=== PATIENT | female | born 1995 | race Caucasian/White ===

== ENCOUNTER 2021-11-22 07:49 | Outpatient (CLI) | payer OTHER, MEDICAID, SELFPAY ==
[2021-11-22 08:50] LABS: Basophils Percent Auto 0.3 % (0.2-1.2); Eosinophils Absolute Auto 0.1 K/mm3 (0-0.3); Eosinophils Percent Auto 0.9 % (0-4.4); Hematocrit 36.2 % (37.0-47.0); Hemoglobin 12.6 g/dL (12.0-15.0); Immature Granulocyte Absolute 0.02 K/mm3 (0.00-0.031); Immature Granulocyte Percent A 0.3 % (0-0.5); Lymphocytes Absolute Auto 1.79 K/mm3 (0.9-3.2); Lymphocytes Percent Auto 25.9 % (18.3-44.2); Mean Corpuscular HGB Conc 34.8 g/dl (32-36); Mean Corpuscular Hemoglobin 30.7 pg (26-34); Mean Corpuscular Volume 88.3 fl (80-100); Mean Platelet Volume 10.9 fl (7.4-10.4); Monocytes Absolute Auto 0.6 K/mm3 (0.1-0.6); Monocytes Percent Auto 7.9 % (2.6-8.5); Neutrophils Absolute Auto 4.5 K/mm3 (1.3-6.7); Neutrophils Percent Auto 64.7 % (45.5-73.1); Platelet Count Result 244 k/mm3 (150-375); Red Cell Distribution Width 11.7 % (11.5-14.5); White Blood Count 6.9 K/mm3 (4.5-10.0)
[2021-11-22 09:35] LABS: HIV 1/2 Ab P24 Ag Result Negative (Negative)
[2021-11-22 10:07] LABS: Hepatitis B Surface Antigen Negative (Negative); Rubella IgG Antibody 28.2 IU/ML
[2021-11-25 07:06] LABS: Rapid Plasma Reagin Non-Reactive (NonReactive)
== END 2021-11-22 07:50 | disposition home or self-care (01) ==
PROVIDERS: PCP Nurse Practitioner Family; Visit Provider Obstetrics & Gynecology
DX: N94.89 Other specified conditions associated with female genital organs and menstrual cycle (principal)
CPT/HCPCS: 36415; 84702; 85025; 86592; 86644; 86703; 86747; 86762; 86787; 86850; 86900; 86901; 87086; 87088; 87340; G0432

== ENCOUNTER 2022-03-13 12:36 | Outpatient (CLI) | payer OTHER, SELFPAY ==
[2022-03-13 14:26] LABS: Glucose 1 Hour PP 50gm Dose 138 mg/dL
== END 2022-03-13 12:37 | disposition home or self-care (01) ==
LOC: ANHLAB 12:38
PROVIDERS: PCP Nurse Practitioner Family; Visit Provider Student in an Organized Health Care Education/Training Program
DX: Z34.90 Encounter for supervision of normal pregnancy, unspecified, unspecified trimester (principal); Z3A.00 Weeks of gestation of pregnancy not specified
CPT/HCPCS: 36415; 82947

== ENCOUNTER 2022-04-22 09:59 | Observation (INO) | payer OTHER, SELFPAY ==
[2022-04-22] VITALS (48 sets, daily range): BP systolic 137–177; BP diastolic 43–117; PULSE 71–106; RESP 16–18; TEMP 36.2; O2SAT 95–100; BMI 34.4
--- NOTE | 2022-04-22 11:00 | OBADM ---
Pt initially here for NST for SGA when elevated BP's were noted. This patient, Romina Snyder, admitted to the OB room 116 for observation for severe hypertension in . Patient/family oriented to hospital policies and general routines including ID bracelet, bed and alarms, visiting hours, pain management, procedures, bathroom and other care routines, personal items, smoking policy, room service/diet, and visiting hours. Patient/Family are encouraged to report perceived risks to care and to ask questions if they do not understand what they are told or what they should do.
[2022-04-22] MEDS: LACTATED RINGERS 1,000 ML 75 ML IV CONT (11:17)
[2022-04-22] MEDS: LABETALOL HCL INJ 100 MG/20 ML VIAL 20 MG IV PUSH (11:20)
[2022-04-22] MEDS: MAGNESIUM SULF 4 GM/WATER100ML 4 GM/100 ML BAG IVPB (11:29)
[2022-04-22] MEDS: BETAMETHASONE SOD PHOS/ACETATE 30 MG/5 ML VIAL 12 MG IM (11:35)
[2022-04-22] MEDS: LABETALOL HCL INJ 100 MG/20 ML VIAL 40 MG IV PUSH (11:41)
[2022-04-22] MEDS: MAGNESIUM SULF 20GM/WATER500ML 500 ML 50 MG IV CONT (12:00)
--- NOTE | 2022-04-22 12:01 | PM.IMHP ---
H&P: HPI History of Present Illness Date/Time: 04/22/22 12:01 26-year-old primigravid patient at 34 weeks presents today for nonstress test due to IUGR noted on growth scan yesterday, found to have elevated blood pressures of 170/1 100-110. She is entirely asymptomatic as far as headaches blurred vision shortness of breath or chest or abdominal pain. care has been consistent and without any abnormalities to this point. Highest blood pressure in her visits old 130/80. Chief Complaint: Presents for NST due to IUGR Review of Systems Review of Systems: All systems reviewed & are unremarkable except as noted in HPI and below PMFSH Past Medical History Medical History Acute anxiety Blood glucose abnormal Surgical History Surgical History History of ear surgery Family History Family History Other Diabetes mellitus Hypertension Social History Social History Smoking status: Never smoker Alcohol intake: never Substance use: never Substance use type: does not use Living arrangements: with family Occupation/Education: unemployed Gender identity (if verbalized by the patient): Female Sexual Orientation (if Verbalized by the Patient): Straight or Heterosexual Meds Home Medications and Allergies Home Medications Medication Instructions Recorded Confirmed Type citalopram 20 mg tablet 20 mg PO DAILY 11/06/21 04/22/22 History prenat.vits,sheela,glc-xfly-proxf 1 tablet PO DAILY 01/01/22 04/22/22 History Allergies Allergy/AdvReac Type Severity Reaction Status Date / Time No Known Allergies Allergy Verified 04/09/22 13:26 Vital Signs Vital Signs - 24 hr 04/22/22 11:20 04/22/22 11:41 04/22/22 11:10 Pulse Rate 83 95 79 Blood Pressure 172/114 H Pulse Oximetry 04/22/22 11:15 04/22/22 11:18 04/22/22 11:20 Pulse Rate 80 84 Blood Pressure 175/117 H 172/107 H Pulse Oximetry 99 04/22/22 11:23 04/22/22 11:26 04/22/22 11:28 Pulse Rate 95 Blood Pressure 162/98 H Pulse Oximetry 98 98 04/22/22 11:30 04/22/22 11:33 04/22/22 11:36 Pulse Rate 95 98 Blood Pressure 177/116 H 165/43 H Pulse Oximetry 99 04/22/22 11:38 04/22/22 11:40 04/22/22 11:41 Pulse Rate 88 89 Blood Pressure 171/106 H 162/108 H Pulse Oximetry 99 04/22/22 11:43 04/22/22 11:48 04/22/22 11:50 Pulse Rate 106 H 97 Blood Pressure 166/104 H 166/111 H Pulse Oximetry 98 98 04/22/22 11:53 04/22/22 11:55 04/22/22 11:58 Pulse Rate 94 Blood Pressure 162/103 H Pulse Oximetry 99 99 04/22/22 12:00 Pulse Rate 95 Blood Pressure 159/101 H Pulse Oximetry Exam Const: General: cooperative, healthy appearing and comfortable Resp: Effort & Inspection: normal respiratory effort Auscultation: clear to auscultation bilaterally Cardio: Rate: regular rate Rhythm: regular rhythm GI: Inspection: normal to inspection GI Palp: No abdominal tenderness Auscultation: normal bowel sounds : Bimanual exam- vagina & uterus: enlarged ( fundal height 31cm) Assessment and Plan Assessment and plan (1) 34 weeks gestation of : Code(s): Z3A.34 - 34 weeks gestation of Status: Acute (2) Pre-eclampsia in third trimester: Code(s): O14.93 - Unspecified pre-eclampsia, third trimester Status: Acute Assessment and Plan: severe features by blood pressure /otherwise asymptomatic (3) IUGR (intrauterine growth restriction): Status: Acute Plan 1. Labetalol antihypertensive per protocol 2. Magnesium sulfate 4g load followed by 2grams/hour 3. Betamethasone x1 4. Initiate ampicillin for GBS prophylaxis 5. contact [facility] for transfer and likely delivery
[2022-04-22 12:04] LABS: Appearance Urine Cloudy (Clear); Bacteria Urine None Seen /hpf; Bilirubin Urine Negative (Negative); Blood Urine Negative (Negative); Color Urine Yellow (Yellow); Glucose Urine UA Negative (Negative); Ketones Urine Negative (Negative); Leukocyte Esterase Ur Negative LEU/UL (Negative); Nitrate Urine Negative (Negative); Non Pathogenic Casts 0-2; Protein Urine 2+ mg/dL (Negative); RBC Urine 0-2 /hpf (0-2); Specific Grav Ur 1.008 (1.001-1.035); Squamous Epithelial Cell Urine Few /hpf (Few); Urobilinogen Urine 0.2 mg/dL (<2.0); WBC Urine 0-5 /hpf
[2022-04-22] MEDS: ONDANSETRON INJ 4 MG/2 ML VIAL IV PUSH (12:06)
[2022-04-22 12:08] LABS: Creatinine Urine 55.5 mg/dL; Total Protein Urine Random 84 mg/dL; Ur Ttl Prot Creatinine Ratio 1.51 mg/mg (0-0.20)
[2022-04-22] MEDS: AMPICILLIN 2 GM/NS 100 ML 2 GM/100 ML BAG IVPB (12:09)
[2022-04-22 12:14] LABS: Alanine Aminotransferase 14 U/L (6-35); Albumin Level 3.6 g/dL (3.5-5.1); Alkaline Phosphatase 153 U/L (38-126); Anion Gap 3 mmol/L (8-16); Aspartate Amino Transferase 25 U/L (14-36); Bilirubin,Total 0.4 mg/dL (0.2-1.3); Blood Urea Nitrogen 3 mg/dL (7-17); Calcium 8.9 mg/dL (8.4-10.2); Carbon Dioxide 23 mmol/L (22-30); Chloride 106 mmol/L (98-107); Estimated Glomerular Filt Rate > 60; Glucose 68 mg/dL (65-110); Potassium 3.7 mmol/L (3.4-5.0); Sodium 132 mmol/L (137-145); Uric Acid 5.8 mg/dL (2.5-7.5)
[2022-04-22 12:15] LABS: Basophils Percent Auto 0.4 % (0.2-1.2); Eosinophils Absolute Auto 0.2 K/mm3 (0-0.3); Eosinophils Percent Auto 2.7 % (0-4.4); Hematocrit 34.5 % (37.0-47.0); Hemoglobin 12.2 g/dL (12.0-15.0); Immature Granulocyte Absolute 0.04 K/mm3 (0.00-0.031); Immature Granulocyte Percent A 0.5 % (0-0.5); Lymphocytes Absolute Auto 2.12 K/mm3 (0.9-3.2); Lymphocytes Percent Auto 28.9 % (18.3-44.2); Mean Corpuscular HGB Conc 35.4 g/dl (32-36); Mean Corpuscular Hemoglobin 30.3 pg (26-34); Mean Corpuscular Volume 85.8 fl (80-100); Mean Platelet Volume 12.6 fl (7.4-10.4); Monocytes Absolute Auto 0.7 K/mm3 (0.1-0.6); Monocytes Percent Auto 9.3 % (2.6-8.5); Neutrophils Absolute Auto 4.3 K/mm3 (1.3-6.7); Neutrophils Percent Auto 58.2 % (45.5-73.1); Platelet Count Result 182 k/mm3 (150-375); Red Blood Count 4.02 M/mm3 (4.2-5.4); Red Cell Distribution Width 12.5 % (11.5-14.5); White Blood Count 7.3 K/mm3 (4.5-10.0)
[2022-04-22 12:18] LABS: Add Urine Microscopic? YES
[2022-04-22] MEDS: LABETALOL HCL INJ 100 MG/20 ML VIAL 80 MG IV PUSH (12:20)
--- NOTE | 2022-04-23 15:04 | PM.OBTRLD ---
OB - Triage/Final Diagnosis Visit Information Reason for evaluation: other ( see history and physical.) Comments/Additional reasons for admission: I have assessed the risk for this patient, Romina Snyder, and determined that she would benefit from observation care. Final diagnosis: 1. Thirty-four week intrauterine 2. Preeclampsia, severe by blood pressure values 3. IUGR Evaluation Laboratory results: Laboratory Tests 04/22/22 04/22/22 04/22/22 11:50 11:50 11:50 WBC 7.3 RBC 4.02 L Hgb 12.2 Hct 34.5 L MCV 85.8 MCH 30.3 MCHC 35.4 RDW 12.5 Plt Count 182 MPV 12.6 H Immature Gran % (Auto) 0.5 Neut % (Auto) 58.2 Lymph % (Auto) 28.9 Ford % (Auto) 9.3 H Eos % (Auto) 2.7 Baso % (Auto) 0.4 Lymph # (Auto) 2.12 Ford # (Auto) 0.7 H Eos # (Auto) 0.2 Baso # (Auto) 0.0 Abs Immat Gran (auto) 0.04 H Absolute Neuts (auto) 4.3 Absolute Nucleated RBC 0.0 Nucleated RBC % 0.0 Sodium 132 L Potassium 3.7 Chloride 106 Carbon Dioxide 23 Anion Gap 3 L BUN 3 L Creatinine 0.50 L Estim Creat Clear Calc Not Reportable Estimated GFR > 60 Glucose 68 Uric Acid 5.8 Calcium 8.9 Total Bilirubin 0.4 AST 25 ALT 14 Alkaline Phosphatase 153 H Total Protein 6.0 L Albumin 3.6 Urine Color Yellow Urine Appearance Cloudy H Urine pH 6.0 Ur Specific Cromwell 1.008 Urine Protein 2+ H Urine Glucose (UA) Negative Urine Ketones Negative Ur Blood (Man) Negative Urine Nitrate Negative Urine Bilirubin Negative Urine Urobilinogen 0.2 Leukocyte Esterase Rfl Negative Urine RBC 0-2 Urine WBC 0-5 Ur Squamous Epith Cells Few Urine Bacteria None seen Urine Casts 0-2 U Random Total Protein Urine Creatinine Protein/Creat Ratio 2 04/22/22 11:50 WBC RBC Hgb Hct MCV MCH MCHC RDW Plt Count MPV Immature Gran % (Auto) Neut % (Auto) Lymph % (Auto) Ford % (Auto) Eos % (Auto) Baso % (Auto) Lymph # (Auto) Ford # (Auto) Eos # (Auto) Baso # (Auto) Abs Immat Gran (auto) Absolute Neuts (auto) Absolute Nucleated RBC Nucleated RBC % Sodium Potassium Chloride Carbon Dioxide Anion Gap BUN Creatinine Estim Creat Clear Calc Estimated GFR Glucose Uric Acid Calcium Total Bilirubin AST ALT Alkaline Phosphatase Total Protein Albumin Urine Color Urine Appearance Urine pH Ur Specific Cromwell Urine Protein Urine Glucose (UA) Urine Ketones Ur Blood (Man) Urine Nitrate Urine Bilirubin Urine Urobilinogen Leukocyte Esterase Rfl Urine RBC Urine WBC Ur Squamous Epith Cells Urine Bacteria Urine Casts U Random Total Protein 84 Urine Creatinine 55.5 Protein/Creat Ratio 2 1.51 H
== END 2022-04-22 13:08 ==
LOC: ANHOBPP 10:50
PROVIDERS: Admitting Provider Obstetrics & Gynecology; PCP Nurse Practitioner Family; Visit Provider Obstetrics & Gynecology
DX: O14.93 Unspecified pre-eclampsia, third trimester (principal); O36.5930 Maternal care for other known or suspected poor fetal growth, third trimester, not applicable or unspecified; Z3A.34 34 weeks gestation of pregnancy
CPT/HCPCS: 36415; 80053; 81001; 82570; 84156; 84550; 85025; 96365; 96366; 96367; 96372; 96375; 96376; G0378; G0379; J0290; J0702; J2405; J3475; J7120

== ENCOUNTER 2024-10-27 12:57 | Outpatient (CLI) | payer BC, SELFPAY ==
--- OUTSIDE RECORDS SUMMARY | 2024-10-27 13:14 | XMS_ITS | Clinical Summary ---
Author Organization [facility] Address [address] [place] [address] Care Team Providers Care Injection Molding Technician Name Role Phone Unavailable Primary Care Provider Unavailabl e Source Comments [facility],non-owned Affiliates and Associated Physician Practices is amultiple site organization consisting of ambulatory clinics and hospital sitesin [place], [place], [place] and [place]. This disclosure is being madepursuant to the Care Everywhere program and may not contain all information available regarding this patient. Last updated 17.[facility] Allergies Active Allergy Reactions Criticality Noted Date Comments Penicillins Unknown 07/12/2024 Penicillin G Benzathine Unknown 05/24/2022 Medications * This document contains information received from the source organization and may not represent a complete record from that organization. * Be aware that medications may not be up to date on this document. Alwaysverify current medications with the patient. escitalopram (Lexapro) 20 MG tablet Take 1 (one) tablet by mouth once daily 30 tablet Active Additional Information Patient taking differently:20 mg Oral DAILY,Indications: depression and anxiety, Reason: Other, Informant: Patient, Reported on 09/07/2024 ARIPiprazole (Abilify) 10 MG tablet Take 1 (one) tablet by mouth once daily 30 tablet Active Additional Information Patient not taking.Reason: Other (insurance), Informant: Patient, Reported on 09/07/2024 Vit-DSS-Fe Fum-FA ( vitamin with iron) tabletIndicatio ns: Take 1 (one) tablet by mouth once daily Reasons: Active aspirin (Aspirin) 81 MG chew tabletIndicatio ns:Preeclampsia Take 2 (two) tablets by mouth once daily (chew and swallow) Reasons: Increased Blood Pressure and Edema During Active Active Problems Problem Noted Date Diagnosed Date BMI 36.0-36.9,adult 07/13/2024 Obesity affecting in second trimester 07/11/2024 History of pre-eclampsia in prior , currently in second trimester 07/11/2024 History of gestational diabe estefania mellitus (GDM) in prior , currently in second trimester 07/11/2024 History of delivery, currently in second trimester 07/11/2024 Overview (07/11/2024): Pre-Eclampsia Estimated Date of Delivery Comme nts Yes 12/29/2024 Based on Ultraso und Resolved Problems Problem Noted Date Diagnosed Date Resolved Date History of 07/11/2024 025 Pre-eclampsia in third trimester 04/22/2022 07/13/2024 Encounters Date Type Department Care Team Description 10/03/2024 1:45 PM CDT - 10/03/2024 11:59 PM CDT Hospital Encounter [facility] [address] [place] [address] 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 DO 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 Discharge Disposition: Home or Self Care 09/07/2024 8:04 AM CDT - 09/07/2024 11:59 PM CDT Hospital Encounter [facility] [address] [place] [id number] Lucinda Sebastian MD Discharge Disposition: Home or Self Care 09/07/2024 Results Follow-Up [facility] [address] [place] [id number] Lcuinda Sebastian MD 08/10/2024 8:15 AM CDT - 08/10/2024 11:59 PM CDT Hospital Encounter [facility] [address] [place] [id number] Claudy Moore MD Discharge Disposition: Home or Self Care from Last 3 Months Immunizations Immunization Administration Dates Next Due MMR 04/25/2022() TDAP (7yrs+) 04/25/2022() Family History Medical History Relation Name Comments Hypertension Father Hypertension Paternal Grandfather Relation Name Status Comments Father Alive Maternal Grandmother Mother Alive Paternal Grandfather Paternal Grandmother Alive Social History Tobacco Use Types Packs/Day Years Used Date Smoking Tobacco: Never Smokeless Tobacco: Never Tobacco Cessation:Counseling Given: No Alcohol Use Standard Drinks/Week Comments Not Currently 0 (1 standard drink = 0.6 oz pure alcohol) 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 Overall Financial Resource Strain (CARDIA) Answe r Date Recorded How hard is it for you to pa y for the very basics like food, housing, medical care, and heating? Somewhat hard 04/22/2022 [facility] [place] Occupat ional Health - Occupational Stress Questionnaire Answer Date Recorded Do you feel stress - tense, restless, nervous, or anxious, or unable to sleep at night because your mind is troubled all the time - these days? Not at all 04/22/2022 Hunger Vital Sign Answer Date Recorded Within the past 12 months, y ou worried that your food would run out before you got the money to buy more. Never true 04/22/19 23 Within the past 12 months, t he food you bought just didn't last and you didn't have money to get more. Never true 04/22/2022 PRAPARE - Transportation Answer Date Re corded In the past 12 months, has l ack of transportation kept you from medical appointments or from getting medications? No 03/27 In the past 12 months, has l ack of transportation kept you from meetings, work, or from getting things needed for daily living? No 04/22/2022 Housing Stability Vital Sign Answer Josh e Recorded In the last 12 months, was t here a time when you were not able to pay the mortgage or rent on time? No 04/22/2022 In the last 12 months, how many places have you lived? 1 04/22/2022 In the last 12 months, was t here a time when you did not have a steady place to sleep or slept in a usp (including now)? No 04/22/2022 Estimated Date of Delivery Comme nts Yes 12/29/2024 Based on Ultraso und Sex and Gender Information Value Date Recorded Sex Assigned at Not on file Legal Sex Female 1:43 PM [employer] Gender Identity Not on file Sexual Orientation Not on file Last Filed Vital Signs Vital Sign Reading Time Taken Comments Blood Pressure 121/76 09/07/2024 8:48 AM CDT Pulse 79 09/07/2024 8:48 AM CDT Temperature 36.7 C (98.1 F) 05/09/2023 3:25 PM CDT Respiratory Rate 16 05/09/2023 3:25 PM CDT Oxygen Saturation 99% 04/26/2022 12:00 PM [employer] Inhaled Oxygen Concentration - - Weight 96.6 kg (213 lb) 09/07/2024 8:48 AM CDT Height 157.5 cm (5' 2) 07/13/2024 2:17 PM CDT Body Mass Index 38.96 07/13/2024 2:17 PM CDT Plan of Treatment Upcoming Encounters Date Type Department Care Team (Late st Contact Info) Description 11/08/2024 9:45 AM CDT Appointment [facility] [address] [place], [place] [id number] Health Maintenance Due Date Last Done Comments HEPATITIS C SCREENING 08/21/2015 DTAP/TDAP/TD VACCINES (1 - Tdap) 2016 HEPATITIS B VACCINE (1 of 3 - 19+ 3-dose series) 2016 PAP SMEAR 2018 COVID-19 VACCINE (3 - 2023-2 5 season) 2023 04/15/2021, 03/18/2021 DEPRESSION SCREENING 02/24/2024 HPV VACCINE (1 - 3-dose SCDM series) 2024 OB-ONE HOUR GLUCOSE 09/22/2024 OB-TDAP CURRENT 09/29/20242022, 09/01/2007 INFLUENZA VACCINE (#1) 2024 11/18/2022 Respiratory Syncytial Virus (RSV) Vaccine Pt: or over 60 yrs (1 - Risk 1-dose series) 11/03/2024 OB-GROUP B STREP SCREEN 11/24/2024 04/22/2022 ZOSTER VACCINE (1 of 2) 08/26/2047 HIV SCREENING Completed 06/07/2024 HIB VACCINE Aged Out No longer eligi ble based on patient's age to complete this topic MENINGOCOCCAL (Group B) VACCINE SHARED DECISION-MAKING Aged Out No longer eligible based on patient's age to complete this topic MENINGOCOCCAL GROUPS A/C/Y/W VACCINE Aged Out No longer eligible b ased on patient's age to complete this topic PNEUMOCOCCAL VACCINE Aged Out No long er eligible based on patient's age to complete this topic Procedures Procedure Name Priority Date/Time Associated Diagnosis Comments SONOGRAM - COMPLETE Routine 10/03/2024 2 :06 PM CDT Encounter for anatomic survey (HCC) History of delivery, currently in second trimester (HCC) History of History of gestational diabetes mellitus (GDM) in prior , currently in second trimester (HCC) History of pre-eclampsia in prior , currently in second trimester (HCC) Obesity affecting in second trimester, unspecified obesity type ([facility]) SONOGRAM - COMPLETE Routine 09/07/2024 8 :13 AM CDT History of delivery, currently in second trimester (HCC) History of History of gestational diabetes mellitus (GDM) in prior , currently in second trimester (HCC) History of pre-eclampsia in prior , currently in second trimester (HCC) Obesity affecting in second trimester, unspecified obesity type (HCC) SONOGRAM - COMPLETE Routine 08/10/2024 8 :19 AM CDT Encounter for anatomic survey (HCC) History of delivery, currently in second trimester (HCC) History of History of gestational diabetes mellitus (GDM) in prior , currently in second trimester (HCC) History of pre-eclampsia in prior , currently in second trimester (HCC) Obesity affecting in second trimester, unspecified obesity type (HCC) CULTURE STREP B Routine 04/22/2022 4:17 PM [employer] from Last 3 Months or Most Recently Relevant to Health Maintenance Results * SONOGRAM - COMPLETE (10/03/2024 2:06 PM CDT) Only the most recent of3 resultswithin the time period is included. Linked Results Indication ======== Screening Follow-Up Size/date discrepancy Maternal obesity complicating , class 1 (BMI 30.0 - 34.9) Supervision of with other poor obstetric history History ====== OB History 2. Para 1 [id number] 1. live 2022. Gest. age 34 w + 2 d. Weight 1,910 g. Sex of child: female. Details: Preeclampsia with severe features Lab Tests Test Date Result NIPT Low risk, Female Maternal Assessment Physical Exam Height 157 cm, 5 ft 2 in. Weight 98 kg, 217 lb. Initial weight 86 kg, 189 lb. BMI 39.69 kg/m . Initial BMI 34.57 kg/m . Weight gain 13 kg, 28 lb Method ====== Transabdominal ultrasound. View: Sufficient ========= Frazier . Number of fetuses: 1 Dating ====== Date Details Gest. age JOCELYN LMP 03/17/2024 28 w + 4 d 12/22/2024 Stated JOCELYN 27 w + 4 d 12/29/2024 Previous U/S 06/07/2024 CRL 38.4 mm 27 w + 4 d 12/29/2024 U/S 10/03/2024 based upon AC, BPD, Femur, HC 27 w + 6 d 12/27/2024 Assigned dating based on ultrasound (CRL), selected on 08/10/2024 27 w + 4 d 12/29/2024 General Evaluation Cardiac activity present. FHR 164 bpm. Presentation: breech Placenta: Placental site: posterior no previa Amniotic fluid: Amount of AF: normal. MVP 7.5 cm. ANA 23.7 cm. Q1 7.5 cm, Q2 7.2 cm, Q3 3.5 cm, Q4 5.6 cm Biometry BPD 67.4 mm 27w 1d 25% Hadlock HC 256.1 mm 27w 6d 28% Hadlock AC 246.8 mm 28w 6d 81% Hadlock Femur 51.7 mm 27w 4d 36% Hadlock Humerus 47.7 mm 28w 0d 59% Fallon HC / AC 1.04 Weight Calculation: EFW 1,198 g 64% Hadlock EFW (lb,oz) 2 lb 10 oz EFW by Hadlock (JTQ-TO-NY-FL) appropriate Growth Overview Exam date GA BPD (mm) HC (mm) AC (mm) FL (mm) HL (mm) EFW (g) 07/13/2024 15w 6d 31.7 49% 118.3 34% 95.4 45% 20.6 57% 138 42% 08/10/2024 19w 6d 45.1 40% 166 18% 142.1 35% 31.3 37% 31.4 76% 302 32% 09/07/2024 23w 6d 56.2 20% 207.9 7% 196 55% 43.1 46% 40.3 60% 653 49% 10/03/2024 27w 4d 67.4 25% 256.1 28% 246.8 81% 51.7 36% 47.7 59% 1198 64% Anatomy The following structures appear normal: Abdomen Stomach. Kidneys. Bladder. sex: female. Impression ========= Here today for interval growth ultrasound due to size/date discrepancy. Single, live, intrauterine at 27w 4d The size is appropriate for the established gestational age. The amniotic fluid volume is normal. Normal appearing posterior placenta. No major malformations were seen within the limits of ultrasound. The anatomical survey was previously complete Comment ======== The biometry is showing good interval growth in the estimated weight is appropriate for the gestational age. Both ultrasound and screening/testing have their limitations in detecting all congenital anomalies and chromosomal abnormalities/inh erited disorders or genetic syndromes. Follow-up ======== To return as clinically warranted by the primary OB provider. Pre term labor and preeclampsia precautions along with kick counts. Thank you for allowing us to partake in your patient's care very Coding ====== Diagnoses O99.212, E66.811: Obesity complicating , class 1 (BMI 30.0 - 34.9) Z36.2: Encounter for other screening follow-up O09.292: Supervision of with other poor reproductive or obstetric history O99.212, E66.811: Obesity complicating , class 1 (BMI 30.0 - 34.9) Procedures 36609: US Preg Uterus Follow Up [facility] Anatomical Region Laterality Modality Other 10/03/2024 2:06 PM CDT Lucinda Sebastian MD [facility] ORDERABLES Edited Result - Final * CULTURE STREP B (04/22/2022 4:17 PM [employer]) Culture Strep B Negative for beta-hemolytic Streptococcus Group B LOUISE 04/25/2022 3:28 PM [employer]PER[employer]OR [employer]PARTMENT [facility] MICROBIOLOGY Microbiology MISCELLANEOUS SAMPLES / Unknown Collection / Unknown 04/22/2022 4:17 PM [employer] 04/22/2022 4:27 PM [employer]PER[employer] Skylar Triplett MD LAB - MICROBIOLOGY ORD ERABLES Final Result [facility] MICROBIOLOGY [address] [place], [place] [address], [facility] [phone] from Last 3 Months or Most Recently Relevant to Health Maintenance Insurance [facility] MEDICAID - [place] Advance Directives * Full Code (Latest Code Status on File) Date Activated Date Inactivated Comments 04/22/2022 2:55 PM 04/26/2022 2:13 PM
--- OUTSIDE RECORDS SUMMARY | 2024-10-27 13:14 | XMS_ITS | Patient Health Record ---
Author Organization [facility] [employer] Address [address] [place] [address] Care Team Providers Care Workers Compensation Coordinator Name Role Phone Jai Glover Unavailable [phone] Reason For Referral No Information Medications Medication SIG (Take, Route, Frequency, Duration) Notes Start Date End Date Status ARIPiprazole 10 MG Tablet Oral 10/07/2021 Active Escitalopram Oxalate 5 MG Tablet Oral 10/07/2021 Active ARIPiprazole 2 MG Tablet Oral 10/07/2021 Active NIFEdipine ER 90 mg Tablet Extended Release 24 Hour Oral 10/07/2021 Act daryn Docusate Sodium 100 MG Capsule Oral 10/07/2021 Active QUEtiapine Fumarate 50 MG Tablet Oral 10/07/2021 Active Escitalopram Oxalate 20 MG Tablet Oral 10/07/2021 Active QUEtiapine Fumarate 25 MG Tablet Oral 10/07/2021 Active ARIPiprazole 5 MG Tablet Oral 10/07/2021 Active Amoxicillin 875 MG Tablet Oral 10/07/2021 Active Immunizations Vaccine Route Administration Date Status Comme nts Moderna Covid-19 Vaccine 1st dose Unknown 03/18/2021 Ad ministered Moderna Covid-19 Vaccine 1st dose Unknown 04/15/2021 Ad ministered Social History Social History Additional Details Category Social Info Options Details Migrated Social History Migrated Social History Alcohol Intake: Occasional 06/07/2021,Tobacco Years: Never smoker 06/07/2021 Plan Of Treatment No Information Medical (General) History Surgical History Surgery Date(Month/Year) Other 07/29/2015
--- OUTSIDE RECORDS SUMMARY | 2024-10-27 13:14 | XMS_ITS | Encounter Summary ---
Author Organization [facility] Address [address] [facility] [place] [address] Care Team Providers Care Polysom Tech Name Role Phone Unavailable Primary Care Provider Unavailabl e Encounter Details Date Type Department Care Team (Late st Contact Info) Description 09/07/2024 Results Follow-Up [facility] Women's Health Maternal & Care [facility] [place] [address] Lucinda Sebastian MD [address] [facility] [address] [place] [address] Social History Tobacco Use Types Packs/Day Years Used Date Smoking Tobacco: Never Smokeless Tobacco: Never Alcohol Use Standard Drinks/Week Comments Not Currently 0 (1 standard drink = 0.6 oz pure alcohol) 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 Overall Financial Resource Strain (CARDIA) Answe r Date Recorded How hard is it for you to pa y for the very basics like food, housing, medical care, and heating? Somewhat hard 04/22/2022 [facility] [place] of Occupat ional Health - Occupational Stress [...] place to sleep or slept in a senior care (including now)? 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 Answer Date of Assessment Author No 04/22/2022 2:45 PM Amanda Padgett RN * Is person blind or have serious difficulty seeing? Answer Date of Assessment Author No 04/22/2022 2:45 PM Amanda Padgett RN * Does person have serious difficulty walking/climbing stairs? Answer Date of Assessment Author No 04/22/2022 2:45 PM Amanda Padgett RN * Does person have difficulty dressing/bathing? Answer Date of Assessment Author No 04/22/2022 2:45 PM Amanda Padgett RN * Does person have difficulty doing errands alone? Answer Date of Assessment Author No 04/22/2022 2:45 PM Amanda Padgett RN documented as of this encounter Mental Status * Does person have difficulty concentrating/remembering/making decisions? Answer Entry Date Author No 04/22/2022 2:45 PM Amanda Padgett RN documented in this encounter Plan of Treatment Upcoming Encounters Date Type Department Care Team (Late st Contact Info) Description 11/08/2024 9:45 AM CDT Appointment [facility] Women's Health Maternal & Care [address] [place] [address] documented as of this encounter Visit Diagnoses Not on filedocumented in this encounter
[2024-10-27 13:31] VITALS: BP 135/65; PULSE 88
[2024-10-27 13:39] VITALS: BMI 41.2
[2024-10-27 13:41] LABS: Hematocrit 34.6 % (37.0-47.0); Hemoglobin 11.6 g/dL (12.0-15.0); Immature Granulocyte Percent A 1.4 % (0-0.5); Lymphocytes Absolute Auto 1.72 K/mm3 (0.9-3.2); Mean Corpuscular HGB Conc 33.5 g/dl (32-36); Mean Corpuscular Hemoglobin 30.3 pg (26-34); Mean Corpuscular Volume 90.3 fl (80-100); Nucleated Red Blood Cells Absolute Auto 0.000 K/mm3 (0.0-0.012); Nucleated Red Blood Cells Perc 0.0 % (0.0-0.2); Platelet Count Result 232 k/mm3 (150-375); Red Blood Count 3.83 M/mm3 (4.2-5.4); White Blood Count 10.6 K/mm3 (4.5-10.0)
[2024-10-27 13:46] VITALS: BP 127/72; PULSE 86
[2024-10-27 14:01] VITALS: BP 123/66; PULSE 82
[2024-10-27 14:05] LABS: Alanine Aminotransferase 16 U/L (6-35); Albumin Level 3.8 g/dL (3.5-5.1); Alkaline Phosphatase 94 U/L (38-126); Anion Gap 7 mmol/L (4-12); Aspartate Amino Transferase 24 U/L (14-36); Bilirubin,Total 0.3 mg/dL (0.2-1.3); Blood Urea Nitrogen 4 mg/dL (7-17); Calcium 8.9 mg/dL (8.4-10.2); Carbon Dioxide 21 mmol/L (22-30); Chloride 104 mmol/L (98-107); Estimated CRCL calculation 152 ml/min; Estimated Glomerular Filt Rate > 60; Glucose 74 mg/dL (65-110); Potassium 3.5 mmol/L (3.4-5.0); Sodium 132 mmol/L (137-145); Total Protein 6.8 g/dL (6.3-8.2); Uric Acid 4.1 mg/dL (2.5-7.5)
[2024-10-27 14:16] VITALS: BP 129/74; PULSE 99
[2024-10-27 14:31] VITALS: BP 126/63; PULSE 83
[2024-10-27 14:32] LABS: Add Urine Microscopic? YES; Appearance Urine Cloudy (Clear); Glucose Urine UA Negative (Negative); Leukocyte Esterase Ur Negative LEU/UL (Negative); Nitrate Urine Negative (Negative); Non Pathogenic Casts 0-2; Specific Grav Ur 1.012 (1.001-1.035); Total Protein Urine Random < 5 mg/dL
[2024-10-27 14:33] LABS: Ur Ttl Prot Creatinine Ratio < 0.08 mg/mg (0-0.20)
[2024-10-27 14:46] VITALS: BP 121/65; PULSE 82
--- NOTE | 2024-10-27 14:50 | PC.NURSE ---
Called Dr. Cosme with pt status. Informed of lab results, BPs and reactive tracing. Pt states that she feels tightening q 10min. No contractions seen on tracing. May D/C home with labor and preeclampsia precautions.
== END 2024-10-27 14:57 | disposition home or self-care (01) ==
LOC: ANHOBOP 13:06 → ANHOBPP 13:08
PROVIDERS: Obstetrics & Gynecology; Visit Provider Obstetrics & Gynecology
DX: O13.9 Gestational [pregnancy-induced] hypertension without significant proteinuria, unspecified trimester (principal); Z3A.00 Weeks of gestation of pregnancy not specified
CPT/HCPCS: 36415; 59025; 80053; 81001; 82570; 84156; 84550; 85025; 99199

== ENCOUNTER 2024-12-20 09:39 | Outpatient (CLI) | payer MEDICAID, SELFPAY ==
[2024-12-20 10:14] LABS: Hematocrit 36.3 % (37.0-47.0); Hemoglobin 12.7 g/dL (12.0-15.0); Immature Granulocyte Percent A 0.9 % (0-0.5); Lymphocytes Absolute Auto 1.86 K/mm3 (0.9-3.2); Mean Corpuscular HGB Conc 35.0 g/dl (32-36); Mean Corpuscular Hemoglobin 31.0 pg (26-34); Mean Corpuscular Volume 88.5 fl (80-100); Nucleated Red Blood Cells Absolute Auto 0.000 K/mm3 (0.0-0.012); Nucleated Red Blood Cells Perc 0.0 % (0.0-0.2); Platelet Count Result 198 k/mm3 (150-375); Red Blood Count 4.10 M/mm3 (4.2-5.4); White Blood Count 8.1 K/mm3 (4.5-10.0)
[2024-12-20 10:18] LABS: Add Urine Microscopic? YES; Appearance Urine Clear (Clear); Glucose Urine UA Negative (Negative); Leukocyte Esterase Ur Negative LEU/UL (Negative); Nitrate Urine Negative (Negative); Non Pathogenic Casts 0-2; Specific Grav Ur 1.018 (1.001-1.035)
[2024-12-20 10:24] VITALS: BP 136/96; PULSE 81; PULSE 83; BMI 41.9
[2024-12-20 10:26] LABS: Alanine Aminotransferase 14 U/L (6-35); Albumin Level 3.6 g/dL (3.5-5.1); Alkaline Phosphatase 117 U/L (38-126); Anion Gap 6 mmol/L (4-12); Aspartate Amino Transferase 29 U/L (14-36); Bilirubin,Total 0.3 mg/dL (0.2-1.3); Blood Urea Nitrogen 5 mg/dL (7-17); Calcium 8.8 mg/dL (8.4-10.2); Carbon Dioxide 20 mmol/L (22-30); Chloride 106 mmol/L (98-107); Estimated Glomerular Filt Rate > 60; Glucose 82 mg/dL (65-110); Potassium 4.0 mmol/L (3.4-5.0); Sodium 132 mmol/L (137-145); Total Protein 6.4 g/dL (6.3-8.2); Uric Acid 5.7 mg/dL (2.5-7.5)
[2024-12-20 10:31] VITALS: BP 138/91; PULSE 89
[2024-12-20 10:43] LABS: Total Protein Urine Random 15 mg/dL; Ur Ttl Prot Creatinine Ratio 0.11 mg/mg (0-0.20)
--- OUTSIDE RECORDS SUMMARY | 2024-12-20 10:43 | XMS_ITS | Patient Health Record ---
Author Organization [facility] [employer] Address [address] [place] [address] Care Team Providers Care Food Preparation Kitchen Aide Name Role Phone Jai Glover Unavailable [phone] Reason For Referral No Information Medications Medication [...]
--- OUTSIDE RECORDS SUMMARY | 2024-12-20 10:43 | XMS_ITS | Clinical Summary ---
Author Organization [facility] [employer] Address [address] [facility] [place] [address] Care Team Providers Care Lumber Hacker Name Role Phone Unavailable Primary Care Provider Unavailabl e Source Comments [facility] [employer],non-owned Affiliates and Associated Physician Practices is amultiple site organization consisting of ambulatory clinics and hospital sitesin [place], [place], [place] and [place]. This disclosure is being madepursuant to the Care Everywhere program and may not contain all information available regarding this patient. Last updated 17.[facility] [employer] Allergies Active Allergy Reactions Criticality Noted Date [...] tablet by mouth once daily 30 tablet 4 Active Additional Information Patient taking differently:20 mg Oral DAILY,Indications: depression and anxiety, Reason: Other, Informant: Patient, Reported on 09/07/2024 ARIPiprazole (Abilify) 10 MG tablet Take 1 (one) tablet by mouth once daily 30 tablet 4 Active Additional Information Patient not taking.Reason: Other [...] Encounters Date Type Department Care Team Description 11/08/2024 9:37 AM CDT - 11/08/2024 11:59 PM CDT Hospital Encounter [facility] Maternal & Care [address] [place] [id number] Claudy Moore MD Discharge Disposition: Home or Self Care 10/03/2024 1:45 PM CDT - 10/03/2024 11:59 PM CDT Hospital Encounter [facility] Maternal & Care [address] [place] [phone] Bud Darling DO DIESEL TRACTOR OPERATOR Discharge Disposition: Home or Self Care from [...] medical care, and heating? Somewhat hard 04/22/2022 [facility] [place] of Occupat ional Health - Occupational Stress [...] place to sleep or slept in a detention (including now)? No 04/22/2022 Estimated Date of Delivery Comme nts Yes 12/29/2024 Based on Ultraso und Sex and Gender Information Value Date Recorded Sex Assigned at Not on file Legal Sex Female 1:43 PM ASSISTANT PROFESSOR Gender Identity Not on file Sexual Orientation Not on file Last Filed Vital Signs Vital Sign Reading Time Taken Comments Blood Pressure 121/76 09/07/2024 8:48 AM CDT Pulse 79 09/07/2024 8:48 AM CDT Temperature 36.7 C (98.1 F) 05/09/2023 3:25 PM CDT Respiratory Rate 16 05/09/2023 3:25 PM CDT Oxygen Saturation 99% 04/26/2022 12:00 PM ASSISTANT PROFESSOR Inhaled Oxygen Concentration - - Weight 96.6 kg (213 lb) 09/07/2024 8:48 AM CDT Height 157.5 cm (5' 2) 07/13/2024 2:17 PM CDT Body Mass Index 38.96 07/13/2024 2:17 PM CDT Plan of Treatment Health Maintenance Due Date Last Done Comments HEPATITIS C SCREENING 08/21/2015 DTAP/TDAP/TD VACCINES (1 - Tdap) 2016 HEPATITIS B VACCINE (1 of 3 - 19+ 3-dose series) 2016 PAP SMEAR 2018 DEPRESSION SCREENING 02/24/2024 HPV VACCINE (1 - 3-dose SCDM series) 2024 OB-ONE HOUR GLUCOSE 09/22/2024 OB-TDAP CURRENT 09/29/20242022, 09/01/2007 COVID-19 VACCINE (3 - 2024-2 6 season) 2024 04/15/2021, 03/18/2021 INFLUENZA VACCINE (#1) 2024 11/18/2022 OB-GROUP B STREP SCREEN 11/24/2024 04/22/2022 ZOSTER VACCINE (1 of 2) 08/26/2047 HIV SCREENING Completed 10/04/2024, 06/07/2024 HIB VACCINE Aged Out No longer [...] on patient's age to complete this topic Respiratory Syncytial Virus (RSV) Vaccine Pt: or over 60 yrs (No Doses Required) Completed Procedures Procedure Name Priority Date/Time Associated Diagnosis Comments SONOGRAM - COMPLETE Routine 11/08/2024 9 :53 AM CDT History of pre-eclampsia in prior , currently in second trimester ([facility]) History of gestational diabetes mellitus (GDM) in prior , currently in second trimester ([facility]) History of delivery, currently in second trimester ([facility]) History of Obesity affecting in second trimester, unspecified obesity type ([facility]) Encounter for ultrasound to assess growth ([facility]) 32 weeks gestation of ([facility]) SONOGRAM - COMPLETE Routine 10/03/2024 2 :06 [...] CULTURE STREP B Routine 04/22/2022 4:17 PM ASSISTANT PROFESSOR from Last 3 Months or Most Recently Relevant to Health Maintenance Results * Sonogram - Complete (11/08/2024 9:53 AM CDT) Only the most recent of2 resultswithin the time period is included. Linked Results Indication ======== Screening Follow-Up Maternal obesity complicating , class 1 (BMI 30.0 - 34.9) Supervision of with other poor obstetric history History ====== OB History 2. Para 1 [id number] 1. live 2022. Gest. age 34 w [...] 28 lb Method ====== Transabdominal ultrasound. View: Good view ========= Frazier . Number of fetuses: 1 Dating ====== Date Details Gest. age JOCELYN LMP 03/17/2024 33 w + 5 d 12/22/2024 Stated JOCELYN 32 w + 5 d 12/29/2024 Previous U/S 06/07/2024 CRL 38.4 mm 32 w + 5 d 12/29/2024 U/S 11/08/2024 based upon AC, BPD, Femur, HC 32 w + 5 d 12/29/2024 Assigned dating based on ultrasound (CRL), selected on 08/10/2024 32 w + 5 d 12/29/2024 General Evaluation Cardiac activity present. FHR 145 bpm. Presentation: breech Placenta: Placental site: posterior Umbilical cord: Cord vessels: 3 vessel cord - previously documented. Insertion site: normal insertion - previously documented Amniotic fluid: Amount of AF: normal. MVP 6.4 cm. ANA 20.8 cm. Q1 6.4 cm, Q2 5.8 cm, Q3 4.2 cm, Q4 4.5 cm Biometry BPD 79.5 mm 31w 6d 21% Hadlock HC 302.6 mm 33w 4d 35% Hadlock AC 289.3 mm 33w 0d 57% Hadlock Femur 63.1 mm 32w 4d 36% Hadlock HC / AC 1.05 Weight Calculation: EFW 2,058 g 44% Hadlock EFW (lb,oz) 4 lb 9 oz EFW by Hadlock ([id number]) appropriate Growth Overview Exam date GA BPD [...] 81% 51.7 36% 47.7 59% 1198 64% 11/08/2024 32w 5d 79.5 21% 302.6 35% 289.3 57% 63.1 36% 2058 44% Anatomy The following structures appear normal: Heart / Thorax 4-chamber view. Abdomen Stomach. Kidneys. Bladder. sex: female. Impression ========= Single, live, intrauterine at 32w 5d size & amniotic fluid volume are normal. No malformations were seen within the limitations of ultrasound. Follow-up ======== surveillance recommendations per ACOG CO-[id number]: Immediately preceding c preeclampsia requiring PTB, start at 32w0d 1X weekly Follow-up U/S for growth at 36 weeks Coding ====== Diagnoses O99.213, E66.811: Obesity complicating , class 1 (BMI 30.0 - 34.9) Z36.2: Encounter for other screening follow-up O09.293: Supervision of with other poor reproductive or obstetric history O99.213, E66.811: Obesity complicating , class 1 (BMI 30.0 - 34.9) Procedures 82459: US Preg Uterus Follow Up [facility] [employer] PACS Anatomical Region Laterality Modality Other 11/08/2024 9:53 AM CDT Nhna Cosme MD [facility] ORDERABLES Edited Result - Final * CULTURE STREP B (04/22/2022 4:17 PM ASSISTANT PROFESSOR) Culture Strep B Negative for beta-hemolytic Streptococcus Group B LOUISE 04/25/2022 3:28 PM ASSISTANT PROFESSOR [facility] MICROBIOLOGY Microbiology MISCELLANEOUS SAMPLES / Unknown Collection / Unknown 04/22/2022 4:17 PM ASSISTANT PROFESSOR 04/22/2022 4:27 PM ASSISTANT PROFESSOR Skylar Triplett MD LAB - MICROBIOLOGY ORD ERABLES Final Result [facility] MICROBIOLOGY [address] [place] [address], [facility] [phone] from Last 3 Months or Most Recently Relevant to Health Maintenance Insurance [facility] [place] [address] Advance Directives * Full Code (Latest Code Status on File) Date Activated Date Inactivated Comments 04/22/2022 2:55 PM 04/26/2022 2:13 PM
[2024-12-20 10:46] VITALS: BP 145/93; PULSE 89
--- NOTE | 2024-12-20 10:51 | PC.NURSE ---
Dr. Allen called and said she has reviewed her BP's, labs, and tracing and OK to send pt to home.
[2024-12-20 10:53] VITALS: BP 145/93; PULSE 88
== END 2024-12-20 10:55 | disposition home or self-care (01) ==
LOC: ANHOBOP 09:43 → ANHOBPP 09:44
PROVIDERS: Visit Provider Obstetrics & Gynecology
DX: O13.9 Gestational [pregnancy-induced] hypertension without significant proteinuria, unspecified trimester (principal); Z3A.00 Weeks of gestation of pregnancy not specified
CPT/HCPCS: 36415; 59025; 80053; 81001; 82570; 84156; 84550; 85025; 99199

== ENCOUNTER 2024-12-27 04:54 | Inpatient (IN) | payer MEDICAID, SELFPAY ==
[2024-12-27] VITALS (101 sets, daily range): BP systolic 83–164; BP diastolic 53–138; PULSE 67–129; TEMP 36.2–36.8; O2SAT 93–100; BMI 41.9
--- OUTSIDE RECORDS SUMMARY | 2024-12-27 04:58 | XMS_ITS | Clinical Summary ---
Author Organization [facility] [employer] Address [address] [facility] [place] [address] Care Team Providers Care Chief Procurement Officer Name Role Phone Unavailable Primary Care Provider Unavailabl e Source Comments [facility],non-owned Affiliates and Associated Physician Practices is amultiple site organization consisting of ambulatory clinics and hospital sitesin [place], [place], [place] and [place]. This disclosure is being madepursuant to the Care Everywhere program and may not contain all information available regarding this patient. Last updated 17.[facility] Allergies Active Allergy Reactions Criticality Noted Date [...] - 11/08/2024 11:59 PM CDT Hospital Encounter [facility] Maternal & Care [address] [place] [id number] Claudy Moore MD Discharge Disposition: Home or Self Care 10/03/2024 1:45 PM CDT - 10/03/2024 11:59 PM CDT Hospital Encounter [facility] Maternal & Care [address] [place] [id number] Bud Darling DO BERRY PLANTER Discharge Disposition: Home or Self Care from [...] medical care, and heating? Somewhat hard 04/22/2022 [facility] [place] of Occupat ional Health - Occupational Stress [...] place to sleep or slept in a care home (including now)? No 04/22/2022 Estimated Date of Delivery Comme nts Yes 12/29/2024 Based on Ultraso und Sex and Gender Information Value Date Recorded Sex Assigned at Not on file Legal Sex Female 1:43 PM RESOURCE SPECIALIST TEACHER Gender Identity Not on file Sexual Orientation Not on file Last Filed Vital Signs Vital Sign Reading Time Taken Comments Blood Pressure 121/76 09/07/2024 8:48 AM CDT Pulse 79 09/07/2024 8:48 AM CDT Temperature 36.7 C (98.1 F) 05/09/2023 3:25 PM CDT Respiratory Rate 16 05/09/2023 3:25 PM CDT Oxygen Saturation 99% 04/26/2022 12:00 PM RESOURCE SPECIALIST TEACHER Inhaled Oxygen Concentration - - Weight 96.6 [...] in prior , currently in second trimester ([facility]) History of gestational diabetes mellitus (GDM) in prior , currently in second trimester ([facility]) History of delivery, currently in second trimester ([facility]) History of Obesity affecting in second trimester, unspecified obesity type ([facility]) Encounter for ultrasound to assess growth ([facility]) 32 weeks gestation of ([facility]) SONOGRAM - COMPLETE Routine 10/03/2024 2 :06 [...] CULTURE STREP B Routine 04/22/2022 4:17 PM RESOURCE SPECIALIST TEACHER from Last 3 Months or Most Recently Relevant to Health Maintenance Results * Sonogram - Complete (11/08/2024 9:53 AM CDT) Only the most recent of2 resultswithin the time period is included. Linked Results Indication ======== Screening Follow-Up Maternal obesity complicating , class 1 (BMI 30.0 - 34.9) Supervision of with other poor obstetric history History ====== OB History 2. Para 1 [id number] 1. live 2022. Gest. age 34 w [...] 4 lb 9 oz EFW by Hadlock ([id number]) appropriate Growth Overview Exam date GA BPD [...] class 1 (BMI 30.0 - 34.9) Procedures 57771: US Preg Uterus Follow Up [facility] [employer] PACS Anatomical Region Laterality Modality Other 11/08/2024 9:53 AM CDT Nhan Cosme MD [facility] ORDERABLES Edited Result - Final * CULTURE STREP B (04/22/2022 4:17 PM RESOURCE SPECIALIST TEACHER) Culture Strep B Negative for beta-hemolytic Streptococcus Group B LOUISE 04/25/2022 3:28 PM RESOURCE SPECIALIST TEACHER [facility] MICROBIOLOGY Microbiology MISCELLANEOUS SAMPLES / Unknown Collection / Unknown 04/22/2022 4:17 PM RESOURCE SPECIALIST TEACHER 04/22/2022 4:27 PM RESOURCE SPECIALIST TEACHER Skylar Triplett MD LAB - MICROBIOLOGY ORD ERABLES Final Result [facility] MICROBIOLOGY [address] [place] [address], [facility] [phone] from Last 3 Months or Most Recently Relevant to Health Maintenance Insurance [facility] MEDICAID - [place] Advance Directives * Full Code (Latest Code Status on File) Date Activated Date Inactivated Comments 04/22/2022 2:55 PM 04/26/2022 2:13 PM
--- OUTSIDE RECORDS SUMMARY | 2024-12-27 04:58 | XMS_ITS | Patient Health Record ---
Author Organization [facility] [employer] Address [address] [place] [address] Care Team Providers Care Woodworking Machine Setter Name Role Phone Jai Glover Unavailable [phone] Reason For Referral No Information Medications Medication SIG (Take, Route, Frequency, Duration) Notes Start Date End Date Status ARIPiprazole 10 MG Tablet Oral 10/07/2021 Active Escitalopram Oxalate 5 MG Tablet Oral 10/07/2021 Active ARIPiprazole 2 MG Tablet Oral 10/07/2021 Active NIFEdipine ER 90 mg Tablet Extended Release 24 Hour Oral 10/07/2021 Act adryn Docusate Sodium 100 MG Capsule Oral 10/07/2021 Active QUEtiapine Fumarate 50 MG Tablet Oral 10/07/2021 Active Escitalopram Oxalate 20 MG Tablet Oral 10/07/2021 Active QUEtiapine Fumarate 25 MG Tablet Oral 10/07/2021 Active ARIPiprazole 5 MG Tablet Oral 10/07/2021 Active Amoxicillin 875 MG Tablet Oral 10/07/2021 Active Immunizations Vaccine Route Administration Date Status Comme nts Moderna Covid-19 Vaccine 1st dose Unknown 04/15/2021 Ad ministered Moderna Covid-19 Vaccine 1st dose Unknown 03/18/2021 Ad ministered Social History Social History Additional Details Category Social Info Options Details Migrated Social History Migrated Social History Alcohol Intake: Occasional 06/07/2021,Tobacco Years: Never smoker 06/07/2021 Plan Of Treatment No Information Medical (General) History Surgical History Surgery Date(Month/Year) Other 07/29/2015
[2024-12-27 05:43] LABS: Hematocrit 37.4 % (37.0-47.0); Hemoglobin 12.8 g/dL (12.0-15.0); Immature Granulocyte Percent A 0.7 % (0-0.5); Lymphocytes Absolute Auto 2.68 K/mm3 (0.9-3.2); Mean Corpuscular HGB Conc 34.2 g/dl (32-36); Mean Corpuscular Hemoglobin 30.5 pg (26-34); Mean Corpuscular Volume 89.0 fl (80-100); Nucleated Red Blood Cells Absolute Auto 0.000 K/mm3 (0.0-0.012); Nucleated Red Blood Cells Perc 0.0 % (0.0-0.2); Platelet Count Result 202 k/mm3 (150-375); Red Blood Count 4.20 M/mm3 (4.2-5.4); White Blood Count 9.6 K/mm3 (4.5-10.0)
[2024-12-27 06:32] LABS: Syphilis IgG/IgM Antibody Non-Reactive (Nonreactive)
[2024-12-27 08:58] LABS: Alanine Aminotransferase 15 U/L (6-35); Albumin Level 3.8 g/dL (3.5-5.1); Alkaline Phosphatase 130 U/L (38-126); Anion Gap 10 mmol/L (4-12); Aspartate Amino Transferase 28 U/L (14-36); Bilirubin,Total 0.3 mg/dL (0.2-1.3); Blood Urea Nitrogen 5 mg/dL (7-17); Calcium 9.5 mg/dL (8.4-10.2); Carbon Dioxide 20 mmol/L (22-30); Chloride 104 mmol/L (98-107); Estimated CRCL calculation 126 ml/min; Estimated Glomerular Filt Rate > 60; Glucose 67 mg/dL (65-110); Potassium 3.8 mmol/L (3.4-5.0); Sodium 134 mmol/L (137-145); Total Protein 6.8 g/dL (6.3-8.2); Uric Acid 6.1 mg/dL (2.5-7.5)
--- NOTE | 2024-12-27 09:20 | PM.IMHP ---
H&P: HPI History of Present Illness Date/Time: 12/27/24 09:20 Chief Complaint: chronic HTN Narrative: Patient is a 29 year old female at 39 weeks who presents for induction of labor, indicated for chronic HTN. She has been well controlled off of medications throughout the . She denies headaches, vision changes, chest pain, dyspnea, RUQ pain or epigastric pain. Her has been otherwise uncomplicated. Review of Systems Review of Systems: All systems reviewed & are unremarkable except as noted in HPI and below PMFSH Past Medical History Medical History (Updated 12/27/24 @ 09:33 by Alberto Allen MD) Encounter for removal of intrauterine contraceptive device Encounter for initial insertion of intrauterine contraceptive device Blood glucose abnormal Acute anxiety Surgical History Surgical History History of ear surgery Family History Family History (Updated 11/30/24 @ 12:30 by Amy Aviles RN) Grandparent Multiple sclerosis Other Diabetes mellitus Hypertension Social History Social History Smoking status: Never smoker Tobacco type: e-cigarettes/vaping Alcohol intake: never Substance use: never Substance use type: does not use Do You Feel Safe in your Home?: Yes Lack of Transportation: No Lack of Food: Never True Current Housing: I Have Housing Concerned About Future Housing: No Difficulty Paying Gas/Electric Bills: No Difficulty Paying for Meds: No Currently Unemployed: No Education: High School Diploma/GED Difficulty w/ Childcare or Family Care: No Living arrangements: with family Occupation/Education: unemployed Gender identity (if verbalized by the patient): Female Sexual Orientation (if Verbalized by the Patient): Straight or Heterosexual Spiritual care concerns: No Meds Home Medications and Allergies Home Medications ?Medication ?Instructions ?Recorded ?Confirmed ?Type escitalopram oxalate 20 mg tablet 20 mg PO DAILY 11/23/23 12/20/24 History aspirin 81 mg tablet 162 mg PO DAILY 11/30/24 12/20/24 History vit no.95-ferrous 1 tablet PO DAILY 11/30/24 12/20/24 History fumarate 28 mg-folic acid 800 mcg tablet () Allergies Allergy/AdvReac Type Severity Reaction Status Date / Time Penicillins Allergy Severe Unknown Verified 12/27/24 07:07 Vital Signs Vital Signs - 24 hr 12/27/24 06:00 12/27/24 06:01 12/27/24 06:16 Temperature 98.3 F Pulse Rate 76 71 Blood Pressure 136/100 H 141/97 H Oxygen Delivery 12/27/24 06:31 12/27/24 06:46 12/27/24 07:01 Temperature Pulse Rate 71 80 75 Blood Pressure 144/94 H 138/96 H 143/99 H Oxygen Delivery 12/27/24 07:06 12/27/24 07:16 12/27/24 07:31 Temperature Pulse Rate 82 79 Blood Pressure 151/99 H 151/87 H Oxygen Delivery Room Air 12/27/24 07:46 12/27/24 08:01 12/27/24 08:16 Temperature Pulse Rate 77 72 68 Blood Pressure 146/96 H 155/94 H 139/92 H Oxygen Delivery 12/27/24 08:31 12/27/24 08:46 12/27/24 09:01 Temperature Pulse Rate 73 76 79 Blood Pressure 122/85 125/78 120/72 Oxygen Delivery Exam Const: General: comfortable and no acute distress Eyes: General: appearance normal, both eyes and all related structures Neck: Neck: supple Resp: Effort & Inspection: normal respiratory effort Cardio: Rate: regular rate H&P: Results Labs Labs: Short CBC 12/27/24 Range/Units 05:21 WBC 9.6 (4.5-10.0) K/mm3 Hgb 12.8 (12.0-15.0) g/dL Hct 37.4 (37.0-47.0) % Plt Count 202 (150-375) k/mm3 [facility] 12/27/24 06:57 Sodium 134 L Potassium 3.8 Chloride 104 Carbon Dioxide 20 L BUN 5 L Creatinine 0.65 L Glucose 67 Calcium 9.5 Liver Function 12/27/24 Range/Units 06:57 Total Bilirubin 0.3 (0.2-1.3) mg/dL AST 28 (14-36) U/L ALT 15 (6-35) U/L Alkaline Phosphatase 130 H (38-126) U/L Albumin 3.8 (3.5-5.1) g/dL Assessment and Plan Assessment and plan (1) Chronic hypertension affecting : Code(s): O10.919 - Unspecified pre-existing hypertension complicating , unspecified trimester Status: Acute Assessment and Plan: - asymptomatic - BP mild range since admission - labs pending - s/p cytotec x1 - FHR category I
[2024-12-27] MEDS: OXYTOCIN 30 UNITS/NS 500 ML 30 UNITS/500 ML BAG IV CONT (15:35)
[2024-12-27] MEDS: LACTATED RINGERS 1,000 ML 125 ML IV CONT (15:35)
--- NOTE | 2024-12-27 18:00 | PM.OBPNLAB ---
Pain Control Date/time seen: 12/27/24 18:00 Pelvic Exam Dilation (cm): 3 Effacement (%): 70 station: -2 Amniotic membrane status: Ruptured (AROM with clear fluid) Contractions Monitor mode: Internal Contraction frequency: 2 Contraction pattern: Regular Contraction intensity: Moderate Status status: Category l Assessment and Plan Pitocin rate (mU/min): 6 Assessment: induction ongoing Plan: continuous present management
--- NOTE | 2024-12-27 19:06 | WPDANESEPP ---
Anes - Eval Pre Procedure Procedure: Labor Epidural Date/Time: 12/27/24 19:06 Surgeon: Alejandro Preop Diagnosis: Labor Pain Pre Op Diagnosis: IOL Patient Data Age: 29 Gender: F Height: 1.57 m Weight: 104 kg Last Vital Signs Temp 36.4 C 12/27/24 18:00 Pulse 80 12/27/24 19:01 BP 151/95 H 12/27/24 19:01 O2 Del Method Room Air 12/27/24 07:06 Allergies Allergy/AdvReac Type Severity Reaction Status Date / Time Penicillins Allergy Severe Unknown Verified 12/27/24 07:07 Home Medications ?Medication ?Instructions ?Recorded ?Confirmed ?Type escitalopram oxalate 20 mg tablet 20 mg PO DAILY 11/23/23 12/20/24 History aspirin 81 mg tablet 162 mg PO DAILY 11/30/24 12/20/24 History vit no.95-ferrous 1 tablet PO DAILY 11/30/24 12/20/24 History fumarate 28 mg-folic acid 800 mcg tablet () Laboratory Tests 12/27/24 12/27/24 05:21 06:57 WBC 9.6 K/mm3 (4.5-10.0) RBC 4.20 M/mm3 (4.2-5.4) Hgb 12.8 g/dL (12.0-15.0) Hct 37.4 % (37.0-47.0) MCV 89.0 fl (80-100) MCH 30.5 pg (26-34) MCHC 34.2 g/dl (32-36) RDW 13.6 % (11.5-14.5) Plt Count 202 k/mm3 (150-375) MPV 12.2 H fl (7.4-10.4) Immature Gran % (Auto) 0.7 H % (0-0.5) Neut % (Auto) 63.4 % (45.5-73.1) Lymph % (Auto) 27.8 % (18.3-44.2) [place] % (Auto) 6.7 % (2.6-8.5) Eos % (Auto) 1.0 % (0-4.4) Baso % (Auto) 0.4 % (0.2-1.2) Lymph # (Auto) 2.68 K/mm3 (0.9-3.2) [place] # (Auto) 0.7 H K/mm3 (0.1-0.6) Eos # (Auto) 0.1 K/mm3 (0-0.3) Baso # (Auto) 0.0 K/mm3 (0.0-0.1) Abs Immat Gran (auto) 0.07 H K/mm3 (0.00-0.031) Absolute Neuts (auto) 6.1 K/mm3 (1.3-6.7) Absolute Nucleated RBC 0.000 K/mm3 (0.0-0.012) Nucleated RBC % 0.0 % (0.0-0.2) Sodium 134 L mmol/L (137-145) Potassium 3.8 mmol/L (3.4-5.0) Chloride 104 mmol/L (98-107) Carbon Dioxide 20 L mmol/L (22-30) Anion Gap 10 mmol/L (4-12) BUN 5 L mg/dL (7-17) Creatinine 0.65 L mg/dL (0.7-1.0) Estim Creat Clear Calc 126 ml/min Estimated GFR > 60 (59 - ) Glucose 67 mg/dL (65-110) Uric Acid 6.1 mg/dL (2.5-7.5) Calcium 9.5 mg/dL (8.4-10.2) Total Bilirubin 0.3 mg/dL (0.2-1.3) AST 28 U/L (14-36) ALT 15 U/L (6-35) Alkaline Phosphatase 130 H U/L (38-126) Total Protein 6.8 g/dL (6.3-8.2) Albumin 3.8 g/dL (3.5-5.1) Syphilis IgG/IgM Ab Non-reactive (Nonreactive) Blood Type O Positive Antibody Screen Negative : gestational age (, JOCELYN 12/29/24) Patient hx anesthesia problems: none Family hx anesthesia problems: none Results Review: All pre-operative results and documents have been reviewed as part of the pre-operative evaluation. [facility] Past Medical History Medical History Encounter for removal of intrauterine contraceptive device Encounter for initial insertion of intrauterine contraceptive device Blood glucose abnormal Acute anxiety Surgical History Surgical History History of ear surgery Family History Family History Grandparent Multiple sclerosis Other Diabetes mellitus Hypertension Social History Social History Smoking status: Never smoker Tobacco type: e-cigarettes/vaping Alcohol intake: never Substance use: never Substance use type: does not use Do You Feel Safe in your Home?: Yes Lack of Transportation: No Lack of Food: Never True Current Housing: I Have Housing Concerned About Future Housing: No Difficulty Paying Gas/Electric Bills: No Difficulty Paying for Meds: No Currently Unemployed: No Education: High School Diploma/GED Difficulty w/ Childcare or Family Care: No Living arrangements: with family Occupation/Education: unemployed Gender identity (if verbalized by the patient): Female Sexual Orientation (if Verbalized by the Patient): Straight or Heterosexual Spiritual care concerns: No Exam Day of Procedure 12/27/24 19:06
[2024-12-28] VITALS (125 sets, daily range): BP systolic 95–165; BP diastolic 60–101; PULSE 65–158; RESP 14–18; TEMP 36.4–37.1; O2SAT 80–100
[2024-12-28] MEDS: LACTATED RINGERS 1,000 ML 125 ML IV CONT (03:33)
--- NOTE | 2024-12-28 08:41 | PM.OBPRVD ---
OB - Vaginal Delivery Note Procedure Delivery date: 12/28/24 Events: Chronic Hypertension Induction method: Per Misoprostol Protocol Delivery augmentation: Rupture of Membranes and Pitocin Delivery monitor: External FHT and Internal Uterine Route of delivery: Episiotomy description: None Laceration Description: Periurethral Delivery repair: vicryl Specimen: No Quantitative Blood Loss (ml): 100 Anesthesia type: Epidural Disposition: Floor Complications: No immediate complications Narrative: See H&P and notes for details on patient's admission and labor. She progressed to complete cervical dilation and at the appropriate time began pushing. With adequate expulsive efforts by the mother, the baby's head was delivered without difficulty. Nuchal cord was present x1 and was easily reduced. The baby's right shoulder was anterior and delivered under the pubic symphysis without difficulty. The posterior shoulder and the rest of the baby delivered without difficulty. The umbilical cord was doubly clamped and cut after 60 seconds of delayed cord clamping. Care of the infant was then assumed by the nursing staff. Baby Date of : 12/28/24 Time of : 08:19 Gestational Age by Date: 39 Infant gender: Female presentation: vertex position: Left Occiput Anterior Placenta delivery description: Expressed Cord Vessel Description: 3 Vessels, Nuchal Cord, Reduced and Clamped/Cut
[2024-12-28] MEDS: OXYTOCIN 30 UNITS/NS 500 ML 30 UNITS/500 ML BAG 125 UNITS IV CONT (08:56)
[2024-12-28] MEDS: IBUPROFEN 600 MG TABLET PO ×2 (10:52→23:51)
[2024-12-28] MEDS: WITCH HAZEL 40 PADS 1 PAD TOPICAL (10:52)
--- NOTE | 2024-12-28 11:25 | PC.NURSE ---
Nursery RN requested assistance for patient. This baby was on CPAP which has been discontinued and baby needs to have a feeding on the monitors. Mom attempted to breastfeed her first child but ultimately ended up pumping exclusively. Baby was alert and would have brief periods of attempting to latch before falling asleep. Baby would hold the nipple in her mouth but refused to suck. We tried for 15 minutes to wake her, switching to both breasts. Mom was shown how to use cross cradle to give her more control of 's head. Baby was not able to achieve a successful feeding at this time. Baby's pulse ox saturation never fell below 95%. Reported to nursery RN
--- NOTE | 2024-12-28 13:30 | PC.NURSE ---
Patient has baby latched to the right breast in cross cradle hold. Baby is eager and suckles consistently. Swallows noted. Baby lost the latch and mom was able to create a 'bite' for baby and got her latched again. The breast tissue is very soft and able to be shaped to fit baby's mouth. Mom states that the latch does not feel painful, but she does note a strong sensation. She is encouraged to call out for any needed assistance and she is supported to know that she is doing a great job with this feeding. Primary RN updated.
[2024-12-29] VITALS (8 sets, daily range): BP systolic 135–155; BP diastolic 88–106; PULSE 72–101; RESP 16–18; TEMP 36.2–37; O2SAT 97–99
[2024-12-29 04:09] LABS: Hematocrit 33.8 % (37.0-47.0); Hemoglobin 11.5 g/dL (12.0-15.0)
--- NOTE | 2024-12-29 07:51 | P.PNOB_ITS ---
OB - PN: Subj Subjective Date/time seen: 12/29/24 07:51 Patient comments: no complaints, pain well controlled, incisional pain, tolerating diet and flatus present OB - PN: Obj Data Labs 12/29/24 03:22 12/27/24 06:57 Labs: Laboratory Results - last 24 hr 12/29/24 03:22 Hgb 11.5 L Hct 33.8 L OB - PN A/P Plan day: 1 Plan: routine care Comments: No problems, routine care Time Spent With Patient Time: Total time spent is greater than 50% in coordination of care (as documented) at patient's floor/unit and/or counseling patient: Exam 2 Const: General: comfortable, no acute distress and alert Resp: Effort & Inspection: normal respiratory effort Auscultation: no crackles, no rales and no rhonchi Cardio: Rate: regular rate Heart sounds: no click, no murmurs and no rubs GI: Inspection: non-distended GI Palp: No Tenderness to palpation present (GI) Auscultation: normal bowel sounds Other: Incision - CDI Extrem: General: normal to inspection, no pedal edema and no calf tenderness
--- NOTE | 2024-12-29 07:51 | P.DS_ITS ---
DS: Admitting Diagnosis Discharge Date 12/29/2024 Admitting Diagnosis Term DS: Discharge Diagnosis Discharge Diagnosis (1) Term delivered: Code(s): O80 - Encounter for full-term uncomplicated delivery Status: Acute OB - DS: Summary OB Procedures : None OB Procedures Intrapartum: Spontaneous Vag Delivery OB Procedures: : None Peripartum Data Laceration Description: Periurethral Episiotomy description: None Time Spent with Patient Time attestation: Total time spent providing and/or coordinating discharge services: DS: Data Data Completed and Pending Labs on day of discharge: Labs from last 24 hours 12/29/24 03:22 Hgb 11.5 L Hct 33.8 L Discharge Plan Discharge Discharging Clinician: Dennis Cosme Patient Disposition: Home Activity: pelvic rest Diet: regular Patient Instructions: Antibiotic Form Patient Language: Indonesian Stand Alone Forms: General Discharge Information Follow-up/Referrals: Dennis Cosme MD [Physician, ELECTRICIAN MANAGER] Discharge Medications: Continued escitalopram oxalate 20 mg tablet 20 mg PO DAILY PNV no.95-ferrous fumarate-FA [] 28 mg iron- 800 mcg tablet 1 tablet PO DAILY aspirin 81 mg tablet 162 mg PO DAILY Date of admission: 12/27/24 04:54 Primary Care Provider: Frida,Carissa Duncan Admitting Provider: Alberto Allen Attending physician on admission: Alberto Allen Condition: Stable
[2024-12-29] MEDS: DOCUSATE SODIUM 100 MG CAPSULE PO ×2 (08:17→16:14)
[2024-12-29] MEDS: MULTIVIT/MIN/PREN/FOL AC/IRON TABLET 1 TAB PO (08:17)
[2024-12-29] MEDS: ESCITALOPRAM OXALATE 10 MG TABLET 20 MG PO (08:17)
--- NOTE | 2024-12-29 14:44 | WPDANLDPN2 ---
Anes-Prog Note L&D Date/Time: 12/29/24 14:44 Comfortable throughout: labor and delivery Neuraxial method: epidural Epidural/Spinal procedure site: clean & non-tender Neuro status: Neuro function grossly intact. Vital Signs: Last Vital Signs Temp 37.0 C 12/29/24 12:48 Pulse 89 12/29/24 12:48 Resp 18 12/29/24 12:48 BP 146/88 H 12/29/24 12:48 Pulse Ox 97 12/29/24 12:48 O2 Del Method Room Air 12/29/24 08:15 Pain score (VAS): 1 I/O: Intake & Output 12/28/24 12/29/24 12/29/24 23:59 07:59 15:59 Intake Total 0 Balance 0 Patient feedback: Patient satisfied with anesthetic care.
[2024-12-29] MEDS: IBUPROFEN 600 MG TABLET PO (16:13)
[2024-12-30 04:30] VITALS: BP 140/92
[2024-12-30] MEDS: IBUPROFEN 600 MG TABLET PO (05:26)
[2024-12-30] MEDS: TETANUS,DIPHTHERIA,AC PERTUSSIS ADULT (0.5 ML) BOOSTRIX IM (07:08)
[2024-12-30] MEDS: INFLUENZA VACCINE 45 MCG/0.5 ML SYRINGE IM (07:13)
--- NOTE | 2024-12-30 07:37 | PC.NURSE ---
Consulted with mother concerning needs and she shared her ability to independently latch infant optimally without pain, is currently latched optimally to her right breast in cradle hold. Mother is feeding appropriately for growth of infant and understands stimulating to eat if needed. Infant has had appropriate feedings in the last 24 hours meets the outcomes for weight, output, blood sugar and jaundice at this time. Reinforced understanding of milk production, transition of milk, signs of adequate intake, transition of stool, prevention/relief of engorgement, plugged ducts, mastitis, responsive watching for feeding cues, the different methods of stimulating infant to breastfeed 1-3 hours after the start of the last feeding, community resources, and when to call a provider using the resource of the feeding sheet along with the mom and baby guide. Mother voiced understanding of the information shared, is confident to continue effectively her at home, when to call for assistance, denies any additional assistance or education at this time. Reported to the Primary RN.
--- NOTE | 2024-12-30 07:51 | P.PNOB_ITS ---
OB - PN: Subj Subjective Date/time seen: 12/30/24 07:51 Interval history: pp day 2 doing well OB - PN: Obj Data Labs 12/29/24 03:22 12/27/24 06:57 OB - PN A/P Plan day: 2 Plan: routine care and discharge home Time Spent With Patient Time: Total time spent is greater than 50% in coordination of care (as documented) at patient's floor/unit and/or counseling patient: Review of Systems 2 Review of Systems: All systems reviewed & are unremarkable except as noted in HPI and below Exam 2 Const: General: cooperative, healthy appearing and comfortable Chest: Chest palpation & inspection: normal inspection of the chest Resp: Effort & Inspection: normal respiratory effort Cardio: Rate: regular rate
--- NOTE | 2024-12-30 07:52 | P.DS_ITS ---
DS: Admitting Diagnosis Discharge Date 12/30/24 Admitting Diagnosis IOL, CHTN OB - DS: Summary OB Procedures : None OB Procedures Intrapartum: Spontaneous Vag Delivery OB Procedures: : None Peripartum Data Laceration Description: Periurethral Episiotomy description: None Time Spent with Patient Time attestation: Total time spent providing and/or coordinating discharge services: Discharge Plan Discharge Attending physician on discharge: Dennis Cosme Discharging Clinician: Dennis Cosme Patient Disposition: Home Activity: pelvic rest Diet: regular Patient Instructions: Antibiotic Form Patient Language: Slovak Stand Alone Forms: General Discharge Information Follow-up/Referrals: Dennis Cosme MD [Physician, VIDEO MACHINES MECHANIC] Discharge Medications: Continued escitalopram oxalate 20 mg tablet 20 mg PO DAILY PNV no.95-ferrous fumarate-FA [] 28 mg iron- 800 mcg tablet 1 tablet PO DAILY aspirin 81 mg tablet 162 mg PO DAILY Date of admission: 12/27/24 04:54 Primary Care Provider: Frida,Carissa Duncan Admitting Provider: Alberto Allen Attending physician on admission: Alberto Allen Condition: Stable
[2024-12-30 08:20] VITALS: BP 146/96; PULSE 68; RESP 18; TEMP 36.6; O2SAT 98
[2024-12-30] MEDS: ESCITALOPRAM OXALATE 10 MG TABLET 20 MG PO (08:26)
[2024-12-30] MEDS: MULTIVIT/MIN/PREN/FOL AC/IRON TABLET 1 TAB PO (08:26)
[2024-12-30] MEDS: DOCUSATE SODIUM 100 MG CAPSULE PO (08:26)
--- NOTE | 2024-12-30 09:15 | PC.NURSE ---
[facility] Referral form completed and faxed to the [place] Office ([phone]) signed copy placed in physical chart.
[2024-12-30 12:10] VITALS: BP 147/90; PULSE 88; RESP 18; TEMP 36.6; O2SAT 99
[2024-12-31 10:21] VITALS: BP 144/98; PULSE 86; RESP 18; TEMP 36.6; O2SAT 100
--- NOTE | 2025-01-03 11:03 | P.DS_ITS ---
DS: Admitting Diagnosis Discharge Date 12/30/24 Admitting Diagnosis IOL DS: Discharge Diagnosis Discharge Diagnosis (1) Term delivered: Code(s): O80 - Encounter for full-term uncomplicated delivery Status: Acute OB - DS: Summary OB Procedures : None OB Procedures Intrapartum: Spontaneous Vag Delivery OB Procedures: : None Peripartum Data Laceration Description: Periurethral Episiotomy description: None Time Spent with Patient Time attestation: Total time spent providing and/or coordinating discharge services: Discharge Plan Discharge Attending physician on discharge: Dennis Cosme Consulting providers: Ciara Mcclain; Alba Pickering; Joycelyn Corley Discharging Clinician: Dennis Cosme Patient Disposition: Home Activity: pelvic rest Diet: regular Discharge Instructions: Education: Mom and Baby Guide Given to: Mother Follow-Up: Call your delivering provider's office for an appointment to be seen in: Phone OB office to schedule follow up appointment Mom and baby [facility] come [facility] for the follow-up appointment. Appointment Date/Time: December 31, 2024 at 10:00 am What to expect at your follow-up visit: Blood Pressure Check Physical Assessment Call [phone] if you are unable to keep your appointment time. BREAST CARE: * Wear a snug supportive bra. * For engorgement discomfort: Breast Feeding: * Apply warm moist washcloths * Express milk as needed to relieve engorgement * Wear loose clothing * For sore nipples: * Identify correct latch-on * Apply warm moist washcloths before and after nursing * Air dry nipples after nursing * May apply Lansinoh cream to nipples EPISIOTOMY/PERINEAL CARE: * Until bleeding stops, use your laura bottle after urinating * Change your pad frequently throughout the day * You may take sitz baths several times a day (fill your bathtub with warm water and soak for 20 minutes.) Do NOT bathe in the water * No tub baths until seen by your physician - You may shower ACTIVITY: * Rest as much as possible. * Do not exercise or lift anything heavier than your baby (such as laundry or other children.) * Avoid stairs or driving as much as possible. * Do not put anything into the vagina. No douching, tampons, or sexual activity until seen by physician. NOTIFY PHYSICIAN IF YOU HAVE ANY QUESTIONS OR IF ANY OF THE FOLLOWING SYMPTOMS OCCUR: * If your episiotomy red, swollen, or more painful than what you have experienced in the hospital. * If your vaginal bleeding becomes foul smelling. * If your vaginal bleeding becomes more heavy than a period or if your bleeding changes from pink to bright red. However, you may pass an occasional walnut- sized clot once or twice for the first week . * If you experience a sharp, shooting pain in you calves. * If you discover a hard, reddened area on your breast or if you experience flu- like symptoms. DIET: * Eat regular, well-balanced meals. * Drink plenty of fluids daily. If , drink to thirst. Patient Language: Botswanan Stand Alone Forms: General Discharge Information Follow-up/Referrals: Dennis Cosme MD [Physician, DISCHARGE RN] Discharge Medications: New labetalol 200 mg tablet 200 mg PO Q12H Qty: 30 0RF Continued escitalopram oxalate 20 mg tablet 20 mg PO DAILY PNV no.95-ferrous fumarate-FA [] 28 mg iron- 800 mcg tablet 1 tablet PO DAILY aspirin 81 mg tablet 162 mg PO DAILY Date of admission: 12/27/24 04:54 Primary Care Provider: Frida,Carissa Duncan Admitting Provider: Alberto Allen Attending physician on admission: Dennis Cosme Condition: Stable
== END 2024-12-30 14:05 | disposition home or self-care (01) | DRG 560 ==
LOC: ANHOB2 12-29 07:54 → ANHLDR 01-02 13:48 → ANHOB2 01-02 13:48
PROVIDERS: Admitting Provider Obstetrics & Gynecology; Visit Provider Obstetrics & Gynecology
DX: O10.92 Unspecified pre-existing hypertension complicating childbirth (principal); O69.81X0 Labor and delivery complicated by cord around neck, without compression, not applicable or unspecified; O70.0 First degree perineal laceration during delivery; Z3A.39 39 weeks gestation of pregnancy; Z37.0 Single live birth; Z23 Encounter for immunization; Z79.82 Long term (current) use of aspirin; Z88.0 Allergy status to penicillin
CPT/HCPCS: 36415; 80053; 84550; 85014; 85018; 85025; 86593; 86850; 86900; 86901; 90471; 90656; 90715; A9270; G0008; J2590; J2795; J7120